=== PATIENT | female | born 1995 | race Caucasian/White ===

== ENCOUNTER 2021-07-12 04:22 | Day surgery (SDC) | payer OTHER ==
[2021-07-11 15:39] VITALS: BMI 18.2
[2021-07-12] MEDS ORDERED: PROPOFOL 20 ML ONE (13:50)
[2021-07-12] MEDS ORDERED: MIDAZOLAM HCL 2 MG/2 ML SINGLE DOSE VIAL ONE (13:50)
[2021-07-12] MEDS ORDERED: KETOROLAC TROMETHAMINE 30 MG/1 ML VIAL ONE ×2 (13:50→14:16)
[2021-07-12] MEDS ORDERED: ceFAZolin SODIUM 1 GM VIAL ONE (14:00)
[2021-07-12] MEDS ORDERED: ceFAZolin SODIUM 1 GM VIAL IVPB ONE (14:00)
[2021-07-12] MEDS ORDERED: ONDANSETRON 4 MG/2 ML VIAL IVPUSH PRN (14:05)
[2021-07-12] MEDS ORDERED: oxyCODONE HCL 5 MG TABLET PO PRN (14:05)
[2021-07-12] MEDS ORDERED: PROMETHAZINE HCL 25 MG/1 ML VIAL IVPB PRN (14:05)
[2021-07-12] MEDS ORDERED: DEXAMETHASONE SOD PHOSPHATE 4 MG/1 ML VIAL ONE (14:07)
[2021-07-12] MEDS ORDERED: OXYTOCIN 10 UNITS/ML VIAL ONE (14:14)
[2021-07-12] MEDS ORDERED: LACTATED RINGERS SOLUTION 1,000 ML IV SCH (14:15)
[2021-07-12] MEDS ORDERED: ACETAMINOPHEN 325 MG TABLET (FP) PO PRN (14:28)
[2021-07-12] MEDS ORDERED: IBUPROFEN 400 MG TABLET (FP) PO PRN (14:28)
[2021-07-12 16:49] VITALS: BP 128/61; PULSE 85; TEMP 98.2
== END 2021-07-12 16:30 | disposition home or self-care (01) ==
LOC: JASU-SURG 04:22
PROVIDERS: ATTEND Specialist
PROC: 10A07ZZ Abortion of Products of Conception, Via Natural or Artificial Opening (ICD-10-PCS; principal; 2021-07-12 13:30)
DX: Z33.2 Encounter for elective termination of pregnancy (principal)
CPT/HCPCS: 94760

== ENCOUNTER 2022-02-12 18:37 | Emergency (ER) | payer OTHER ==
[2022-02-12 19:03] VITALS: BP 116/63; PULSE 88; RESP 18; TEMP 99.3; BMI 22.3
[2022-02-12 22:23] LABS: URINE APPEARANCE CLEAR; URINE BILIRUBIN NEGATIVE (NEGATIVE); URINE COLOR YELLOW; URINE GLUCOSE (UA) TRACE (NEGATIVE); URINE KETONE NEGATIVE (NEGATIVE); URINE LEUK ESTERASE NEGATIVE (NEGATIVE); URINE NITRITE NEGATIVE (NEGATIVE); URINE PROTEIN NEGATIVE (NEGATIVE); URINE UROBILINOGEN 0.2 mg/dL (0.2-1.0)
== END 2022-02-12 22:39 | disposition home or self-care (01) ==
LOC: JER 18:37
DX: O26.891 Other specified pregnancy related conditions, first trimester (principal); R10.2 Pelvic and perineal pain; M54.9 Dorsalgia, unspecified; Z3A.13 13 weeks gestation of pregnancy
CPT/HCPCS: 76815; 81003; 87086; 99284-25

== ENCOUNTER 2022-08-18 04:35 | Inpatient (IN) | payer OTHER ==
[2022-08-18] MEDS ORDERED: LACTATED RINGERS SOLUTION 1,000 ML IV ONE ×2 (05:45→06:45)
[2022-08-18] MEDS ORDERED: PROMETHAZINE HCL 25 MG/1 ML VIAL IVPB ONE (08:45)
[2022-08-18] MEDS ORDERED: BUTORPHANOL TARTRATE 2 MG/ML VIAL IVPB ONE (08:45)
[2022-08-18 09:06] VITALS: BMI 30.2
[2022-08-18 09:14] LABS: BASO % 0.1 % (0-2.0); EOS % 0.9 % (0-4.5); HEMATOCRIT 31.7 % (32.4-45.2); LYMPH % 12.3 % (8-40); MCH 23.9 pg (25.7-33.7); MCHC 31.6 g/dl (32.0-36.0); MEAN CELL VOLUME 75.8 fl (80-96); MEAN PLT VOLUME 9.5 fl (7.5-11.1); NEUT % 80.7 % (42.8-82.8); PLATELET COUNT 239 10^3/uL (134-434); RBC 4.19 M/mm3 (3.60-5.2); RDW 16.8 % (11.6-15.6); WHITE BLOOD COUNT 15.7 K/mm3 (4.0-10.0)
[2022-08-18 09:20] LABS: INR 0.98 (0.83-1.09); PROTHROMBIN TIME (PATIENT) 11.4 SEC (9.7-13.0)
[2022-08-18 09:22] LABS: ACTIVATED PTT 25.5 SECONDS (25.2-36.5)
[2022-08-18 09:36] LABS: CALCIUM 8.8 mg/dL (8.5-10.1)
[2022-08-18 09:37] LABS: BLOOD UREA NITROGEN 6.2 mg/dL (7-18)
[2022-08-18 09:40] LABS: CREATININE 0.4 mg/dL (0.55-1.3)
[2022-08-18] MEDS ORDERED: FENTANYL/BUPIVACAINE/NS/PF - PCEA - 50 ML DISP.SYRIN EP ONE ×2 (11:10→15:37)
[2022-08-18] MEDS ORDERED: FENTANYL CITRATE/PF 50 MCG/ML VIAL ONE ×3 (11:11→20:00)
[2022-08-18] MEDS ORDERED: BUPIVACAINE HCL/PF 0.25% (2.5MG/ML) 10 ML VIAL ONE (11:11)
[2022-08-18] MEDS: FENTANYL/BUPIVACAINE/NS/PF - PCEA - 50 ML DISP.SYRIN EP SCH ×3 (11:35→23:33)
[2022-08-18] MEDS ORDERED: NALOXONE HCL 0.4 MG/ML VIAL IVPUSH PRN (11:46)
[2022-08-18] MEDS ORDERED: ELECTROLYTE-148 SOLN 1,000 ML IV SCH (12:45)
[2022-08-18] MEDS ORDERED: LIDO 2%/EPI 1:200000 PRESRVFRE (20 ML SDVIAL) ONE (16:49)
[2022-08-18] MEDS ORDERED: ONDANSETRON 4 MG/2 ML VIAL IVPUSH PRN (19:14)
[2022-08-18] MEDS ORDERED: ACETAMINOPHEN 325 MG TABLET (FP) PO PRN ×2 (19:14→20:46)
[2022-08-18] MEDS ORDERED: IBUPROFEN 600 MG TABLET (FP) PO PRN ×2 (19:14→20:46)
[2022-08-18] MEDS ORDERED: OXYTOCIN 30 UNITS in 0.9% NS 30 UNIT/500 ML INFUS.BAG IVPB ONE (19:18)
[2022-08-18] MEDS ORDERED: ceFAZolin SODIUM 1 GM VIAL ONE ×2 (19:44)
[2022-08-18] MEDS ORDERED: DEXAMETHASONE SOD PHOSPHATE 4 MG/1 ML VIAL ONE (19:44)
[2022-08-18] MEDS ORDERED: ONDANSETRON 4 MG/2 ML VIAL ONE (19:44)
[2022-08-18] MEDS ORDERED: KETOROLAC TROMETHAMINE 30 MG/1 ML VIAL ONE (19:44)
[2022-08-18] MEDS ORDERED: MIDAZOLAM HCL 2 MG/2 ML SINGLE DOSE VIAL ONE (19:45)
[2022-08-18] MEDS ORDERED: LIDOCAINE HCL/PF 2% SDV 5ML VIAL ONE (19:45)
[2022-08-18] MEDS ORDERED: KETAMINE HCL 500 MG/10 ML VIAL ONE (19:46)
[2022-08-18] MEDS: OXYTOCIN 20 UNITS in 0.9% NS 20 UNIT/1,000 ML INFUS.BAG IV SCH ×2 (19:50→20:30)
[2022-08-18] MEDS ORDERED: OXYTOCIN 20 UNITS in 0.9% NS 20 UNIT/1,000 ML INFUS.BAG IV ONE (20:36)
[2022-08-18] MEDS ORDERED: METHYLERGONOVINE MALEATE 0.2 MG/1 ML AMP IM PRN (20:46)
[2022-08-18] MEDS ORDERED: SENNOSIDES/DOCUSATE COMBO (SENNA PLUS) TABLET (UD) PO PRN (20:46)
[2022-08-18] MEDS ORDERED: IBUPROFEN 800 MG/8 ML IJ IVPB PRN (20:46)
[2022-08-18] MEDS ORDERED: SIMETHICONE 80 MG TAB.CHEW (FP) PO PRN (20:46)
[2022-08-18] MEDS: FERROUS SO4 325 MG TABLET (FP) PO SCH (22:00)
[2022-08-19 08:35] LABS: BASO % 0.2 % (0-2.0); EOS % 0.1 % (0-4.5); HEMATOCRIT 24.2 % (32.4-45.2); HEMOGLOBIN 7.9 GM/dL (10.7-15.3); LYMPH % 10.3 % (8-40); MCH 24.6 pg (25.7-33.7); MCHC 32.6 g/dl (32.0-36.0); MEAN CELL VOLUME 75.5 fl (80-96); MEAN PLT VOLUME 9.7 fl (7.5-11.1); MONO % 6.7 % (3.8-10.2); NEUT % 82.7 % (42.8-82.8); PLATELET COUNT 187 10^3/uL (134-434); RBC 3.21 M/mm3 (3.60-5.2); RDW 16.7 % (11.6-15.6); WHITE BLOOD COUNT 17.8 K/mm3 (4.0-10.0)
[2022-08-19] MEDS ORDERED: oxyCODONE HCL 5 MG TABLET PO PRN ×2 (08:46)
[2022-08-19] MEDS ORDERED: ACETAMINOPHEN 650 MG/20.3 ML ORAL SOLUTION (CUPS) PO PRN (09:27)
[2022-08-19] MEDS ORDERED: IBUPROFEN 100 MG/5 ML UNIT DOSE CUPS PO PRN (09:27)
[2022-08-19] MEDS: PRENATAL VITAMINS W/ FOLIC ACID TABLET (FP) PO SCH (10:38)
[2022-08-19] MEDS: FERROUS SO4 325 MG TABLET (FP) PO SCH (10:38)
[2022-08-19] MEDS ORDERED: IRON SUCROSE INJECTION 200 MG in SODIUM CHLORIDE 90 ML IVPB ONE (15:33)
[2022-08-19] MEDS ORDERED: BISACODYL 10 MG SUPP.RECT RC PRN (20:46)
[2022-08-20 07:58] LABS: BASO % 0.2 % (0-2.0); HEMATOCRIT 27.4 % (32.4-45.2); HEMOGLOBIN 9.2 GM/dL (10.7-15.3); LYMPH % 11.6 % (8-40); MCH 25.6 pg (25.7-33.7); MCHC 33.6 g/dl (32.0-36.0); MEAN CELL VOLUME 76.1 fl (80-96); MONO % 7.5 % (3.8-10.2); NEUT % 79.7 % (42.8-82.8); PLATELET COUNT 218 10^3/uL (134-434); RBC 3.61 M/mm3 (3.60-5.2); RDW 16.9 % (11.6-15.6); WHITE BLOOD COUNT 13.6 K/mm3 (4.0-10.0)
[2022-08-20] MEDS: PRENATAL VITAMINS W/ FOLIC ACID TABLET (FP) PO SCH (10:00)
[2022-08-20 23:33] VITALS: TEMP 97.9
[2022-08-21 09:29] VITALS: BP 111/61; PULSE 84; RESP 18
[2022-08-21] MEDS: PRENATAL VITAMINS W/ FOLIC ACID TABLET (FP) PO SCH (10:41)
== END 2022-08-21 12:20 | disposition home or self-care (01) | DRG 786 ==
LOC: JDEL 04:35 → JLDR 08:30 → J3W 21:46
PROVIDERS: ADMIT Specialist; ATTEND Specialist
PROC: 10D00Z1 Extraction of Products of Conception, Low, Open Approach (ICD-10-PCS; principal; 2022-08-18)
DX: O62.0 Primary inadequate contractions (principal); U07.1 COVID-19; O98.52 Other viral diseases complicating childbirth; O36.63X0 Maternal care for excessive fetal growth, third trimester, not applicable or unspecified; O90.81 Anemia of the puerperium; Z3A.39 39 weeks gestation of pregnancy; Z37.0 Single live birth
CPT/HCPCS: 36415; 80048; 85025; 85610; 85730; 86780; 86850; 86900; 86901; 88307-TC; C9803-CS; J1756; U0003; U0005

== ENCOUNTER 2024-12-28 08:00 | Inpatient (IN) | payer OTHER ==
[2024-12-28 08:54] VITALS: BMI 31.7
[2024-12-28] MEDS ORDERED: FENTANYL CITRATE/PF 50 MCG/ML VIAL ONE (08:58)
[2024-12-28] MEDS ORDERED: ONDANSETRON 4 MG/2 ML VIAL ONE (08:58)
[2024-12-28] MEDS ORDERED: morphine SULFATE/PF 1 MG/2 ML (2cc Syringe - QUVA) ONE (08:58)
[2024-12-28] MEDS ORDERED: ELECTROLYTE-148 SOLN 500 ML IV ONE (09:10)
[2024-12-28] MEDS ORDERED: IBUPROFEN 600 MG TABLET (FP) PO PRN (09:33)
[2024-12-28] MEDS ORDERED: ACETAMINOPHEN 325 MG TABLET (FP) PO PRN (09:33)
[2024-12-28] MEDS ORDERED: ONDANSETRON 4 MG/2 ML VIAL IVPUSH PRN (09:33)
[2024-12-28] MEDS ORDERED: OXYTOCIN 10 UNITS/ML VIAL ONE ×2 (11:08→11:25)
[2024-12-28] MEDS ORDERED: DEXAMETHASONE SOD PHOSPHATE 4 MG/1 ML VIAL ONE (11:24)
[2024-12-28] MEDS ORDERED: KETOROLAC TROMETHAMINE 30 MG/1 ML VIAL ONE (11:24)
[2024-12-28] MEDS ORDERED: IBUPROFEN (CALDOLOR) 800 MG/200 ML PREMIX BAGS IVPB PRN (11:58)
[2024-12-28] MEDS ORDERED: ACETAMINOPHEN 1000 MG/100 ML BAG IVPB PRN (11:58)
[2024-12-28] MEDS ORDERED: ONDANSETRON 4 MG/2 ML VIAL IVPB PRN (11:58)
[2024-12-28] MEDS ORDERED: KETOROLAC TROMETHAMINE 15 MG/ML VIAL IVPUSH PRN (15:00)
[2024-12-28] MEDS: IBUPROFEN (CALDOLOR) 800 MG/200 ML PREMIX BAGS IVPB SCH (15:51)
[2024-12-28] MEDS: ACETAMINOPHEN 1000 MG/100 ML BAG IVPB SCH (16:59)
[2024-12-28] MEDS: CEFAZOLIN 1 GM/D5W 1 GM/50 ML BAG IVPB SCH (17:44)
[2024-12-28] MEDS: OXYTOCIN 20 UNITS in 0.9% NS 20 UNIT/1,000 ML INFUS.BAG IV SCH (18:28)
[2024-12-28] MEDS: MAG HYDROX/AL HYDROX/SIMETH -MYLANTA- ORAL SUSPENSION PO SCH (18:42)
[2024-12-29] MEDS: CITRIC ACID/SODIUM CITRATE 30 ML UNIT-DOSE CUP PO ONE (03:55)
[2024-12-29 07:37] LABS: ABSOLUTE IMMATURE GRANULOCYTES 0.10 x10^3/uL (0.0-0.031); BASOPHILS # 0.04 x10^3/uL (0.01-0.08); EOSINOPHIL % 1.3 % (0.7-5.8); EOSINOPHILS # 0.16 x10^3/uL (0.04-0.36); MCHC 30.2 g/dl (32.2-35.5); MEAN CELL VOLUME 78.9 fl (79.4-94.8); MEAN PLT VOLUME 11.3 fl (9.4-12.3); MONOCYTE # 1.13 x10^3/uL (0.24-0.86); MONOCYTE % 9.2 % (4.7-12.5); RDW 16.1 % (12.1-16.8)
[2024-12-29 08:11] LABS: CO2 24.0 mmol/L (21-32); GLUCOSE,RANDOM 79.0 mg/dL (74-106)
[2024-12-29 08:14] LABS: CREATININE 0.3 mg/dL (0.55-1.3); SGOT/AST 23.0 U/L (15-37); SGPT/ALT 16.0 U/L (13-61)
[2024-12-29 08:16] LABS: TOT PROT 5.6 g/dl (6.4-8.2)
[2024-12-29 08:17] LABS: ALK PHOS 115.0 U/L (45-117)
[2024-12-29] MEDS: ENOXAPARIN NA (PORCINE) 40 MG/0.4 ML DISP.SYRIN SQ SCH (10:20)
[2024-12-29] MEDS ORDERED: BISACODYL 10 MG SUPP.RECT RC PRN (11:58)
[2024-12-29] MEDS ORDERED: ACETAMINOPHEN 500 MG TABLET (FP) PO PRN (12:00)
[2024-12-29] MEDS: IBUPROFEN 100 MG/5 ML UNIT DOSE CUPS PO PRN (12:04)
[2024-12-29] MEDS ORDERED: IBUPROFEN 600 MG TABLET (FP) PO PRN (12:30)
[2024-12-29] MEDS: ACETAMINOPHEN 650 MG/20.3 ML ORAL SOLUTION (CUPS) PO PRN (19:32)
[2024-12-30 06:56] LABS: ABSOLUTE IMMATURE GRANULOCYTES 0.08 x10^3/uL (0.0-0.031); BASOPHILS # 0.06 x10^3/uL (0.01-0.08); EOSINOPHIL % 3.1 % (0.7-5.8); EOSINOPHILS # 0.32 x10^3/uL (0.04-0.36); MCHC 29.6 g/dl (32.2-35.5); MEAN CELL VOLUME 79.0 fl (79.4-94.8); MEAN PLT VOLUME 11.4 fl (9.4-12.3); MONOCYTE # 0.85 x10^3/uL (0.24-0.86); MONOCYTE % 8.3 % (4.7-12.5); RDW 16.2 % (12.1-16.8)
[2024-12-30 07:23] LABS: GLUCOSE,RANDOM 80.0 mg/dL (74-106)
[2024-12-30 07:24] LABS: CO2 27.0 mmol/L (21-32)
[2024-12-30 07:26] LABS: CREATININE 0.4 mg/dL (0.55-1.3); SGOT/AST 20.0 U/L (15-37); SGPT/ALT 15.0 U/L (13-61)
[2024-12-30 07:28] LABS: TOT PROT 5.8 g/dl (6.4-8.2)
[2024-12-30 07:29] LABS: ALK PHOS 104.0 U/L (45-117)
[2024-12-30 08:01] VITALS: RESP 17
[2024-12-31 07:01] LABS: ABSOLUTE IMMATURE GRANULOCYTES 0.09 x10^3/uL (0.0-0.031); BASOPHILS # 0.05 x10^3/uL (0.01-0.08); EOSINOPHIL % 5.7 % (0.7-5.8); EOSINOPHILS # 0.53 x10^3/uL (0.04-0.36); MCHC 29.8 g/dl (32.2-35.5); MEAN CELL VOLUME 79.2 fl (79.4-94.8); MEAN PLT VOLUME 10.7 fl (9.4-12.3); MONOCYTE # 0.79 x10^3/uL (0.24-0.86); MONOCYTE % 8.5 % (4.7-12.5); RDW 16.1 % (12.1-16.8)
[2024-12-31 08:21] VITALS: BP 116/74; PULSE 70; TEMP 97.9
== END 2024-12-31 13:15 | disposition home or self-care (01) | DRG 540 ==
LOC: JLDR 08:00 → J3W 14:30
PROVIDERS: ADMIT Specialist; ATTEND Specialist
PROC: 10D00Z1 Extraction of Products of Conception, Low, Open Approach (ICD-10-PCS; principal; 2024-12-28)
DX: O34.218 Maternal care for other type scar from previous cesarean delivery (principal); Z3A.39 39 weeks gestation of pregnancy; Z37.0 Single live birth
CPT/HCPCS: 36415; 59409; 80053; 85025; 88307-TC; 94010